=== PATIENT | male | born 1975 | race Two or more races ===

== ENCOUNTER 2021-04-18 10:59 | Emergency (ER) | payer SELFPAY ==
[2021-04-18 11:36] LABS: CHLORIDE,CL 101 mEq/L (98-106); SODIUM,NA 140 mEq/L (136-145)
[2021-04-18] MEDS ORDERED: fentaNYL 50 MCG/ML SDV IVPUSH ONE (11:40)
[2021-04-18] MEDS ORDERED: Ondansetron 4 MG/2 ML SDV IVPUSH STA (11:46)
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
== END 2021-04-18 12:25 ==
LOC: CC.ED 10:59
DX: S00.83XA Contusion of other part of head, initial encounter (principal); S20.211A Contusion of right front wall of thorax, initial encounter; H61.22 Impacted cerumen, left ear; Y04.0XXA Assault by unarmed brawl or fight, initial encounter
CPT/HCPCS: 36415; 70450; 70486; 71260; 72125; 74177; 80053; 80307; 82150; 83605; 85025; 85610; 96374; 96375; 99285-25; J2405; J3010

== ENCOUNTER 2021-07-02 09:13 | Emergency (ER) | payer OTHER ==
[2021-07-02] MEDS ORDERED: Tranexamic Acid 1,000 MG in Sodium Chloride 0.9% 100 ML IV ONE (09:35)
[2021-07-02 09:40] LABS: CHLORIDE,CL 98 mEq/L (98-106); SODIUM,NA 137 mEq/L (136-145)
[2021-07-02] MEDS ORDERED: Morphine 10 MG/ML SDV ONE (09:42)
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
[2021-07-02] MEDS ORDERED: Morphine 4 MG/ML VIAL IVPUSH ONE (10:35)
[2021-07-02] MEDS ORDERED: Sodium Chloride 0.9% 1,000 ML IV ONE (10:35)
== END 2021-07-02 10:15 ==
LOC: CC.ED 09:13
DX: S31.114A Laceration without foreign body of abdominal wall, left lower quadrant without penetration into peritoneal cavity, initial encounter (principal); E86.1 Hypovolemia; E11.9 Type 2 diabetes mellitus without complications; W26.0XXA Contact with knife, initial encounter
CPT/HCPCS: 36415; 36430; 80053; 83605; 83690; 85025; 85610; 86850; 86900; 86901; 86920; 86922; 99285; J2270; J7030; P9016

== ENCOUNTER 2022-02-13 20:59 | Emergency (ER) | payer SELFPAY ==
[2022-02-13] MEDS ORDERED: Lisinopril 5 MG Tab PO ONE (21:31)
[2022-02-13] MEDS ORDERED: Lisinopril 10 MG Tab PO ONE (21:32)
== END 2022-02-13 21:47 | disposition home or self-care (01) ==
LOC: CC.ED 20:59
DX: H57.89 Other specified disorders of eye and adnexa (principal); E11.9 Type 2 diabetes mellitus without complications; Z79.82 Long term (current) use of aspirin; Z79.4 Long term (current) use of insulin
CPT/HCPCS: 99282; 99283; A9270-GY